=== PATIENT | male | born 1980 | race Caucasian/White ===

== ENCOUNTER 2017-06-22 05:52 | Emergency (ER) | payer BC ==
--- NOTE | ~2017-06-22 | ER ---
PATIENT'S NAME: LUKE ALBARADO [facility] AGE: 37 Y [address] ROOM: [place] [address] LOCATION: [facility] ADMIT DATE: 06/22/2017 ER/Outpatient Report DISCHARGE DATE: 06/22/2017 FAMILY PHYSICIAN: PHYSICIAN, NO ATTENDING PHYSICIAN: Kem Perales Time of Arrival: 0554 hours. Time of Evaluation: 0554 hours. CHIEF COMPLAINT: Fever and left ear pain. HISTORY OF PRESENT ILLNESS: The patient is a 37-year-old male who presents to the emergency department today with chief complaint of fever and left ear pain. He reports this started 3 days prior to arrival. Discussed some swelling in his lymph nodes. Denies any nausea or vomiting, subjective chills, and fever. Denies any cough. No sore throat, no difficulty swallowing, no hoarse voice, no sinus pain, no facial pain, no swollen jaw or face. He reports he does have history of ear infections. Occasionally, this does feel like a previous ear infection. PAST MEDICAL HISTORY: None. PAST SURGICAL HISTORY: Cyst from his back. SOCIAL HISTORY: The patient denies any tobacco use. Reports occasional alcohol use. Denies any illicit drug use. ALLERGIES: NO KNOWN DRUG ALLERGIES. MEDICATIONS: None. REVIEW OF SYSTEMS: All systems are reviewed by myself and are negative with the exception of those discussed in HPI and past medical history. PHYSICAL EXAMINATION: VITAL SIGNS: Height 5 feet 7 inches, weight 95 kg, blood pressure 129/88, pulse 139, respiratory rate 20, temperature 100.2, oxygen saturation 95% on PATIENT'S NAME: LUKE ALBARADO [facility] AGE: 37 Y [address] ROOM: [place] [address] LOCATION: [facility] ADMIT DATE: 06/22/2017 ER/Outpatient Report DISCHARGE DATE: 06/22/2017 FAMILY PHYSICIAN: PHYSICIAN, NO ATTENDING PHYSICIAN: Kem Perales room air. GENERAL: The patient is a 37-year-old male, appears stated age, in excellent overall clinical appearance. HEENT: Normocephalic, atraumatic. Pupils are equal, round, and reactive to light. Nares are with clear discharge bilaterally. TMs are clear. There is no erythema, no bulging. Oropharynx is clear. There is no blood, no exudate. There is some mild erythema. Posterior pharynx: There is no tonsillar hypertrophy. No pus pockets noted. NECK: Supple. There is no nuchal rigidity. CARDIOVASCULAR: Tachycardic. No murmurs, rubs, or gallops. LUNGS: Clear to auscultation bilaterally. No wheezes, rales, or rhonchi. ABDOMEN: Soft, nontender, and nondistended. No rebound, rigidity, or guarding. MUSCULOSKELETAL: The patient moves all 4 extremities. SKIN: Warm and dry. There are no rashes or lesions noted. LABORATORY DATA AND X-RAYS: None. IMPRESSION: 1. Acute febrile illness. 2. Otalgia, left ear. 3. Initial visit. EMERGENCY DEPARTMENT COURSE: The patient was brought back to the examination room. Seen and evaluated by myself. History and physical performed as described above. The patient does have an excellent overall clinical appearance at this time. I have discussed the results of the history and physical with the patient. He reports he just did take some ibuprofen prior to coming in. I have discussed with him that I do suspect he has a self-limiting viral illness. However, the patient does have a history of ear infection. He does feel like he has some early ear infection. I have written a prescription for amoxicillin with instructions he is not to take it for 2 days. He is to start taking it if he is not getting any better and continues to have ear pain. I have discussed following up with primary care doctor. He does report he has seen Family Practice at that time. I have discussed [id number] instructions including worsening symptoms or any other concerns to return to the emergency department as soon as possible. The patient is agreeable without further questions at this time. DISPOSITION: The patient is discharged home in good condition. PATIENT'S NAME: LUKE ALBARADO [facility] AGE: 37 Y [address] ROOM: [place], [place] [address] LOCATION: [facility] ADMIT DATE: 06/22/2017 ER/Outpatient Report DISCHARGE DATE: 06/22/2017 FAMILY PHYSICIAN: PHYSICIAN, NO ATTENDING PHYSICIAN: Kem Perales DO YON MICHEL/modl /[id number] d: 06/22/17705 t: 06/28/17 1841, OUTPATIENT REPORT
== END 2017-06-22 06:10 | disposition disaster alternative care site (69) ==
LOC: GMED 05:52
DX: H92.02 Otalgia, left ear (principal); R50.9 Fever, unspecified; Z98.890 Other specified postprocedural states

== ENCOUNTER 2017-06-28 16:10 | Emergency (ER) | payer BC ==
--- NOTE | ~2017-06-28 | ER ---
PATIENT'S NAME: LUKE ALBARADO [facility] AGE: 37 Y [address] ROOM: [place] [address] LOCATION: [facility] ADMIT DATE: 06/28/2017 ER/Outpatient Report DISCHARGE DATE: 06/28/2017 FAMILY PHYSICIAN: PHYSICIAN, MATTHEW ATTENDING PHYSICIAN: Denise Washington TIME OF ARRIVAL: 1610 hours. TIME SEEN: 1630 hours. IDENTIFICATION: A 37-year-old male. CHIEF COMPLAINT: Fever and weakness. HISTORY OF PRESENT ILLNESS: The patient is a 37-year-old male who 1 week ago had a febrile illness probably viral and was evaluated in the emergency room on Monday. He thought he was getting better and tried to go back to work today, but was persistently weak, a little bit lightheaded, and just not feeling well. He did have left ear pain, but did not fill the antibiotics he was prescribed and his ear pain is relieved. He has had no nausea or vomiting. He has had a slight nonproductive cough and shortness of breath with activity. He has no chest pain, no abdominal pain, and no other problems or concerns. ALLERGIES: NO KNOWN DRUG ALLERGIES. CURRENT MEDICATIONS: Denies. MEDICAL PROBLEMS: Denies. No prior surgeries or hospitalizations. 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 Lives here in [place]. Tobacco use, denies. Alcohol use, denies. Drug use, denies. No ill contacts. REVIEW OF SYSTEMS: All systems reviewed and negative other than what is noted in the HPI. FAMILY HISTORY: PATIENT'S NAME: LUKE ALBARADO [facility] AGE: 37 Y [address] ROOM: [place] [address] LOCATION: [facility] ADMIT DATE: 06/28/2017 ER/Outpatient Report DISCHARGE DATE: 06/28/2017 FAMILY PHYSICIAN: PHYSICIAN, MATTHEW ATTENDING PHYSICIAN: Denise Washington No pertinent family history. PHYSICAL EXAMINATION: VITAL SIGNS: Height 5 feet, 7 inches, weight 95.7 kg. Blood pressure 118/78, pulse 133, respirations 20, temperature 97.3, and sats 98%. GENERAL: A 37-year-old male in obvious distress who appears a little bit ashen in color. HEENT: Head: Normocephalic, atraumatic. Ears: TMs translucent both ears. Eyes: Pupils equal and reactive to light and accommodation. Extraocular movements intact. Nose: Mucosa pink. No lesions. Mouth: No lesions. Pharynx benign. Mucous membranes are dry. NECK: Supple. No lymphadenopathy. No nuchal rigidity. LUNGS: Clear to auscultation. Breath sounds are equal. No rhonchi, wheezes, or rales. HEART: Sinus tachycardia. No murmur, rub, or gallop. ABDOMEN: Soft, nondistended, nontender. SKIN: Pale, warm, and dry. NEURO: No focal deficit. No lower extremity edema. No calf tenderness. LABORATORY DATA: EKG sinus tachycardia, 121 beats per minute, no acute ST-elevation or depression. Sodium 137, potassium 3.6, chloride 105, CO2 24, BUN 11, creatinine 1.4, no baseline for comparison. Blood sugar 130, AST 42, ALT 67. Troponin I less than 0.040. CRP 1.47. Hemoglobin 15.1, hematocrit 44, platelets 279, white count 10.8, normal differential. Procalcitonin 0.07. Lactate 3.2. UA negative. Chest x-ray, no acute process, pending Radiology over-read. IMPRESSION: 1. Dehydration. 2. Acute kidney injury. 3. Mild hypokalemia. 4. Elevated lactate. 5. Recent viral illness. EMERGENCY DEPARTMENT COURSE: The patient was given 2 L of IV fluids here, he felt much better, his blood pressure was 130/67, heart rate came down to 100, temp remained afebrile 97.4, and respiratory rate 16. He would like to be discharged home. He will be discharged home to push fluids and rest, no work until recheck, and follow up with primary care in 1 day. Follow up sooner if any problems or concerns. The patient does understand and agree and all questions have been answered. PATIENT'S NAME: LUKE ALBARADO [facility] AGE: 37 Y [address] ROOM: [place], [place] [address] LOCATION: [facility] ADMIT DATE: 06/28/2017 ER/Outpatient Report DISCHARGE DATE: 06/28/2017 FAMILY PHYSICIAN: PHYSICIAN, NO ATTENDING PHYSICIAN: Denise Washington MD DL HALL/carol /[id number] d: 06/29/17 0704 t: 06/30/17 1735, OUTPATIENT REPORT
[2017-06-28 17:02] LABS: HEMOGLOBIN 15.1 g/dL (12.0-17.0); MCH 28.8 pg (27.0-34.0); MCHC 34.3 gm/dL (32.0-36.5); MCV 83.8 fl (83.0-98.0); PLATELET COUNT 279 K/uL (150-450); RBC 5.25 M/uL (4.00-6.00); RDW-CV 13.5 % (11.9-14.6); WBC 10.8 K/uL (4.0-11.0)
[2017-06-28 17:16] LABS: ALBUMIN 3.4 gm/dL (3.5-5.0); ALK PHOS 91 IU/L (33-138); ALT 67 IU/L (12-78); ANION GAP 11.6 (10.0-19.0); AST 42 IU/L (10-40); BLOOD UREA NITROGEN 11 mg/dL (6-24); CALCIUM 8.8 mg/dL (8.5-10.5); CHLORIDE 105 mMol/L (96-110); CO2 24 mMol/L (22-32); CREATININE 1.4 mg/dL (0.6-1.3); POTASSIUM 3.6 mMol/L (3.7-5.1); SODIUM 137 mMol/L (135-145); TOTAL BILIRUBIN 1.1 mg/dL (0.0-1.5); TOTAL PROTEIN 7.9 g/dL (6.0-8.4)
[2017-06-28 17:45] LABS: ABSOLUTE NEUTROPHIL CT (ANC) 5.7 K/uL (1.4-9.0); BANDED NEUTROPHILS % 9 %; LYMPHOCYTE # 4.3 K/uL (0.8-4.0); LYMPHOCYTE % 28 %; MONOCYTE # 0.9 K/uL (0.0-1.0); SEGMENTED NEUTROPHIL # 4.8 K/uL (1.4-9.0); SEGMENTED NEUTROPHIL % 44 %
[2017-06-28 18:18] LABS: BILIRUBIN URINE NEGATIVE (NEGATIVE); BLOOD URINE NEGATIVE /UL (NEGATIVE); COLOR URINE YELLOW (YELLOW); GLUCOSE URINE NEGATIVE (NEGATIVE); KETONE URINE NEGATIVE (NEGATIVE); LEUKOCYTES URINE NEGATIVE /UL (NEGATIVE); NITRITE URINE NEGATIVE (NEGATIVE); PROTEIN URINE NEGATIVE (NEGATIVE); TURBIDITY URINE CLEAR (CLEAR); UROBILINOGEN URINE NORMAL (NORMAL)
== END 2017-06-28 18:27 | disposition disaster alternative care site (69) ==
LOC: GMED 16:10
PROVIDERS: Family Medicine
DX: E86.0 Dehydration (principal); N17.9 Acute kidney failure, unspecified; E87.6 Hypokalemia; B34.9 Viral infection, unspecified; R74.0 Nonspecific elevation of levels of transaminase and lactic acid dehydrogenase [LDH]
CPT/HCPCS: J7030